=== PATIENT | male | born 1960 | race Caucasian/White ===

== ENCOUNTER 2016-07-20 11:30 | Emergency (ER) | payer OTHER ==
[~2016-07-20 11:30] MED LIST: CAL12OSR PO; PRIN20 PO; ROXICODONE30 MG PO; ZANAFLEX 4 MG TA4 MG PO
== END 2016-07-20 17:43 | disposition home or self-care (01) ==
LOC: ER 11:30
DX: S39.012A Strain of muscle, fascia and tendon of lower back, initial encounter (principal); Z79.899 Other long term (current) drug therapy; W18.2XXA Fall in (into) shower or empty bathtub, initial encounter
CPT/HCPCS: 72100; 96372; 99283; J1170; J2405